=== PATIENT | female | born 1970 | race Caucasian/White ===

== ENCOUNTER 2024-05-18 11:57 | Emergency (ER) | payer OTHER ==
--- NOTE | 2024-05-18 12:44 | RAD REPORT ---
EXAMINATION: Ankle Left 3 View CLINICAL INDICATION: Female, 54 years old. ankle sprain;Pain COMPARISON: No prior exam. FINDINGS: Bimalleolar fracture. The medial and lateral malleolar fractures are only slightly displaced. The dis fidelina fibular fracture is below the level of the syndesmosis. No malalignment/dislocation. No significant focal degenerative change. Other: n/a IMPRESSION: Bimalleolar fracture.
[2024-05-18] MEDS ORDERED: HYDROMORPHONE HCL 1 MG/ML INJ ONE (12:47)
[2024-05-18] MEDS ORDERED: KETOROLAC 30 MG/ML INJ ONE (12:47)
--- NOTE | 2024-05-18 13:04 | EDPHYS ---
Physician Documentation [facility] Name: Rachelle Deleon Age: 54 yrs Sex: Female : 1970 Arrival Date: 05/18/2024 Time: 11:57 Bed 5 Private MD: ED Physician Arya Sawant HPI: 05/18 12:16 This 54 yrs old Female presents to ER via Wheelchair with complaints of Fall Injury, sp3 Ankle Injury - left. 12:16 54-year-old female with no past medical history presents with left ankle pain after sp3 rolling it on a tree root while working outside just prior to arrival. No prior injury to the knee. No secondary injury reported. Review of systems otherwise negative for knee pain, other injury, or any other signs or symptoms at this time.. Historical: - Allergies: 12:09 No Known Allergies; iw - PMHx: 12:09 None; iw - Immunization history:: Adult Immunizations up to date. - Infectious Disease History:: Denies. - Social history:: Smoking status: Patient denies any tobacco usage or history of. ROS: 12:17 Constitutional: Negative for fever, chills, and weight loss, Eyes: Negative for injury, sp3 pain, redness, and discharge, ENT: Negative for injury, pain, and discharge, Neck: Negative for injury, pain, and swelling, Cardiovascular: Negative for chest pain, palpitations, and edema, Respiratory: Negative for shortness of breath, cough, wheezing, and pleuritic chest pain, Abdomen/GI: Negative for abdominal pain, nausea, vomiting, diarrhea, and constipation, Back: Negative for injury and pain, Skin: Negative for injury, rash, and discoloration, Neuro: Negative for headache, weakness, numbness, tingling, and seizure, Psych: Negative for depression, anxiety, suicide ideation, homicidal ideation, and hallucinations, Allergy/Immunology: Negative for hives, rash, and allergies, Endocrine: Negative for neck swelling, polydipsia, polyuria, polyphagia, and marked weight changes, Hematologic/Lymphatic: Negative for swollen nodes, abnormal bleeding, and unusual bruising, 12:17 All other systems are negative, Exam: 12:17 Constitutional: This is a well developed, well nourished patient who is awake, alert, sp3 and in no acute distress. Head/Face: Normocephalic, atraumatic. Eyes: Pupils equal round and reactive to light, extra-ocular motions intact. Lids and lashes normal. Conjunctiva and sclera are non-icteric and not injected. Cornea within normal limits. Periorbital areas with no swelling, redness, or edema. Chest/axilla: Normal chest wall appearance and motion. Nontender with no deformity. No lesions are appreciated. Cardiovascular: Regular rate and rhythm with a normal S1 and S2. No gallops, murmurs, or rubs. Normal PMI, no JVD. No pulse deficits. Respiratory: Lungs have equal breath sounds bilaterally, clear to auscultation and percussion. No rales, rhonchi or wheezes noted. No increased work of breathing, no retractions or nasal flaring. Abdomen/GI: Soft, non-tender, with normal bowel sounds. No distension or tympany. No guarding or rebound. No evidence of tenderness throughout. Back: No spinal tenderness. No costovertebral tenderness. Full range of motion. Skin: Warm, dry with normal turgor. Normal color with no rashes, no lesions, and no evidence of cellulitis. Neuro: Awake and alert, GCS 15, oriented to person, place, time, and situation. Cranial nerves II-XII grossly intact. Motor strength 5/5 in all extremities. Sensory grossly intact. Cerebellar exam normal. Normal gait. Psych: Awake, alert, with orientation to person, place and time. Behavior, mood, and affect are within normal limits. 12:17 Musculoskeletal/extremity: Left lateral ankle swelling with pain to the lateral malleolus. Distal neurovascular exam is normal. No pain at the base of the fifth metatarsal. Capillary refill is normal. DP pulses normal.. Vital Signs: 12:09 Pulse 79; Resp 18; Temp 97; Pulse Ox 97% ; Pain 10/10; iw 12:10 BP 127 / 70; rs5 13:09 BP 123 / 66; Pulse 74; Resp 17; Pulse Ox 99% on R/A; rs5 13:50 BP 117 / 68; Pulse 70; Resp 17; Pulse Ox 99% on R/A; rs5 12:09 Pain Scale: Adult iw MDM: 12:07 Medical Screening Exam initiated sp3 12:17 Data reviewed: vital signs, nurses notes, radiologic studies. ED course: Left ankle sp3 sprain versus fracture. IM Dilaudid and ketorolac pending. X-ray pending. Disposition pending workup and patient course.. 13:03 ED course: Bimalleolar fracture noted on x-ray. Patient will be splinted, given sp3 crutches and follow-up with orthopedics.. 05/18 12:08 Order name: Ankle Left 3 View XRAY; Complete Time: 12:59 sp3 05/18 12:59 Order name: Ankle Splint: Orthoglass: Posterior; Complete Time: 13:45 sp3 05/18 12:59 Order name: Ankle Splint: Orthoglass: Stirrup; Complete Time: 13:45 sp3 05/18 12:59 Order name: Crutches; Complete Time: 13:45 sp3 Administered Medications: 12:30 Drug: HYDROmorphone IM 1 mg IM once Route: IM; Site: right ventrogluteal; rs5 13:31 Follow up: Response: No adverse reaction; Pain is decreased rs5 12:30 Drug: Ketorolac IM 30 mg IM once Route: IM; Site: left ventrogluteal; rs5 13:34 Follow up: Response: No adverse reaction; Pain is decreased rs5 Disposition Summary: 05/18/24 13:04 Discharge Ordered Notes: Location: Home sp3 Condition: Stable sp3 Diagnosis - Bimalleolar ankle fracture left side sp3 Followup: sp3 - With: Private Physician - When: Upon discharge from the Emergency Department - Reason: Continuance of care Followup: sp3 - With: Zackery Barry MD - When: Upon discharge from the Emergency Department - Reason: Continuance of care Discharge Instructions: - Discharge Summary Sheet sp3 - Ankle Fracture sp3 Forms: - Medication Reconciliation Form sp3 - Antibiotic Education sp3 - Prescription Opioid Use sp3 - Patient Portal Instructions sp3 - Leadership Thank You Letter sp3 Prescriptions: - Crutches - One pair of Adult crutches; ; Refills: 0, Product Selection Permitted sp3 - Tramadol 50 mg Oral Tablet - take 1 tablet ORAL route every 8 hours as needed; 12 tablet; Refills: 0, sp3 Product Selection Permitted Signatures: Dispatcher [facility]SC Arlene Isidro RN RN iw Arya Sawant MD MD sp3 Rbush, Yony, RN RN rs5
--- NOTE | 2024-05-18 13:04 | ER ---
Nurse's Notes [facility] Name: Rachelle Deleon Age: 54 yrs Sex: Female : 1970 Arrival Date: 05/18/2024 Time: 11:57 Bed 5 Private MD: Diagnosis: Bimalleolar ankle fracture left side Presentation: 05/18 12:08 Chief complaint: Patient states: tripped , fell , rolled left ankle. iw 12:08 Acuity: TYLER 4 iw 12:09 Coronavirus screen: At this time, the client does not indicate any symptoms associated iw with coronavirus-19. Ebola Screen: No symptoms or risks identified at this time. Initial Sepsis Screen: Does the patient meet any 2 criteria? No. Patient's initial sepsis screen is negative. Does the patient have a suspected source of infection? No. Patient's initial sepsis screen is negative. Risk Assessment: Do you want to hurt yourself or someone else? Patient reports no desire to harm self or others. Onset of symptoms was May 18, 2024. 12:09 Method Of Arrival: Wheelchair iw Historical: - Allergies: 12:09 No Known Allergies; iw - PMHx: 12:09 None; iw - Immunization history:: Adult Immunizations up to date. - Infectious Disease History:: Denies. - Social history:: Smoking status: Patient denies any tobacco usage or history of. Screenin:11 [facility] ED Fall Risk Assessment (Adult) History of falling in the last 3 months, rs5 including since admission No falls in past 3 months (0 pts) Confusion or Disorientation No (0 pts) Intoxicated or Sedated No (0 pts) Impaired Gait Yes (1 pt) Mobility Assist Device Used Yes (1 pt) Altered Elimination No (0 pt) Score/Fall Risk Level 0 - 2 = Low Risk Oriented to surroundings, Maintained a safe environment. Abuse screen: Denies threats or abuse. Nutritional screening: No deficits noted. Tuberculosis screening: No symptoms or risk factors identified. Assessment: 12:10 General: Appears distressed, uncomfortable, Behavior is cooperative. Pain: Complains of rs5 pain in left ankle Pain currently is 9 out of 10 on a pain scale. Quality of pain is described as aching, Is continuous. 12:10 Neuro: Level of Consciousness is awake, alert, obeys commands, Oriented to person, rs5 place, time, situation. Cardiovascular: Patient's skin is warm and dry. Respiratory: Airway is patent Respiratory effort is even, unlabored, Respiratory pattern is regular, symmetrical. GI: Abdomen is round non-distended, Abd is soft and non tender X 4 quads. : No signs and/or symptoms were reported regarding the genitourinary system. EENT: No signs and/or symptoms were reported regarding the EENT system. Derm: Skin is intact, Skin is pink, warm \T\ dry. Musculoskeletal: Range of motion: limited in left ankle Swelling present in left ankle. 13:07 Reassessment: Patient and/or family updated on plan of care and expected duration. Pain rs5 level reassessed. Patient is alert, oriented x 3, equal unlabored respirations, skin warm/dry/pink. 13:50 Reassessment: Patient and/or family updated on plan of care and expected duration. Pain rs5 level reassessed. Patient is alert, oriented x 3, equal unlabored respirations, skin warm/dry/pink. Vital Signs: 12:09 Pulse 79; Resp 18; Temp 97; Pulse Ox 97% ; Pain 10/10; iw 12:10 BP 127 / 70; rs5 13:09 BP 123 / 66; Pulse 74; Resp 17; Pulse Ox 99% on R/A; rs5 13:50 BP 117 / 68; Pulse 70; Resp 17; Pulse Ox 99% on R/A; rs5 12:09 Pain Scale: Adult iw ED Course: 11:59 Patient arrived in ED. ra3 12:07 Arya Sawant MD is Attending Physician. sp3 12:09 Triage completed. iw 12:11 Patient has correct armband on for positive identification. Placed in gown. Bed in low rs5 position. Call light in reach. Side rails up X2. 12:11 No provider procedures requiring assistance completed. rs5 12:35 Ankle Left 3 View XRAY In Process Unspecified. EDMS 12:44 Yony Brush, NERY is Primary Nurse. rs5 13:03 Zackery Barry MD is Referral Physician. sp3 13:45 Crutch training done. Orthoglass splint: Posterior short lleg splint applied on left em1 leg. stirrup splint applied on left leg. 14:00 Patient did not have IV access during this emergency room visit. rs5 Administered Medications: 12:30 Drug: HYDROmorphone IM 1 mg IM once Route: IM; Site: right ventrogluteal; rs5 13:31 Follow up: Response: No adverse reaction; Pain is decreased rs5 12:30 Drug: Ketorolac IM 30 mg IM once Route: IM; Site: left ventrogluteal; rs5 13:34 Follow up: Response: No adverse reaction; Pain is decreased rs5 Medication: 12:10 VIS not applicable for this client. rs5 Outcome: 13:04 Discharge ordered by . sp3 14:00 Discharged to home via wheelchair, with family, rs5 14:00 Condition: stable rs5 14:00 Discharge instructions given to patient, family, Instructed on discharge instructions, follow up and referral plans. Demonstrated understanding of instructions, follow-up care, medications, 14:00 Instructed on medication usage, Prescriptions given X 1, 14:04 Patient left the ED. iw Signatures: Dispatcher [employer] EDMS Arlene Isidro, RN RN iw [place] em1 Arya Sawant MD MD sp3 Yony Brush RN RN rs5 Maria L Ruggiero ra3 Corrections: (The following items were deleted from the chart) 13:09 12:10 BP 98 / 54; rs5
[2024-05-18 14:30] VITALS: TEMP 97
[2024-05-18 14:32] VITALS: BP 123/66; O2SAT 99
== END 2024-05-18 14:04 | disposition home or self-care (01) ==
LOC: ER 11:57
PROC: 2W3TX1Z Immobilization of Left Foot using Splint (ICD-10-PCS; principal; 2024-05-18)
DX: S82.842A Displaced bimalleolar fracture of left lower leg, initial encounter for closed fracture (principal)
CPT/HCPCS: 73610; 96372; 99284; 29515; J1171